=== PATIENT | male | born 1980 | race Caucasian/White ===

== ENCOUNTER 2018-07-24 12:11 | Inpatient (IN) | payer OTHER ==
--- NOTE | 2018-07-24 14:17 | C.PDOC ---
History Of Present Illness 38 yr old male w/ hx of intermittent etoh use (on weekends) no other Pmhx p/w R pointer finger laceration, chest pain and mild abdominal pain. 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 He denies any other laceration or any other trauma or fall. No headache, nausea or vomiting. He notes mild abdominal pain, epigastric, without nausea, vomiting, diarrhea or constipation. He notes the pain is a throbbing, but his main concern is chest pain, sharp stabbing, into his L side, without radiation. No shortness of breath or leg swelling. No SCHILLING. No fever chills or night sweats. HE denies any hx of etoh withdrawal. TETanus UTD, 3yr prior. He notes only drinking on the weekends and sometimes on the weekdays. He notes feeling tremulous at this time. Time Seen by Provider: 07/24/18 12:26 Chief Complaint (Nursing): Chest Pain Past Medical History Vital Signs: Last Vital Signs Temp 98.6 F 07/24/18 12:23 Pulse 122 H 07/24/18 12:23 Resp 18 07/24/18 12:23 BP 168/107 H 07/24/18 12:23 Pulse Ox 99 07/24/18 12:23 Family History: States: Unknown Family Hx - Social History Hx Alcohol Use: Yes Hx Substance Use: No - Immunization History Hx Tetanus Toxoid Vaccination: Yes Hx Influenza Vaccination: No Hx Pneumococcal Vaccination: No Review Of Systems Constitutional: Negative for: Fever, Chills, Sweats, Weakness, Malaise Eyes: Negative for: Pain, Vision Change ENT: Negative for: Ear Pain, Ear Discharge, Nose Pain, Nose Congestion, Mouth Pain Cardiovascular: Positive for: Chest Pain. Negative for: Palpitations, Orthopnea Respiratory: Negative for: Cough, Shortness of Breath, Hemoptysis, SOB with Excertion, Pleuritic Pain, Sputum Gastrointestinal: Positive for: Abdominal Pain. Negative for: Nausea, Vomiting, Diarrhea, Constipation, Melena, Hematochezia, Hematemesis Genitourinary: Negative for: Dysuria, Frequency Musculoskeletal: Negative for: Neck Pain, Shoulder Pain Skin: Negative for: Rash, Lesions Neurological: Negative for: Weakness, Confusion, Seizures, Headache Psych: Negative for: Anxiety, Depression Physical Exam - Physical Exam Appears: Non-toxic, No Acute Distress, Other (tremulous, mild) Skin: Normal Color, Warm Head: Atraumatic, Normacephalic Eye(s): bilateral: Normal Inspection, PERRL, EOMI Ear(s): Bilateral: Normal Nose: Normal Oral Mucosa: Moist Tongue: Normal Appearing Lips: Normal Appearing Teeth: Normal Dentition Gingiva: Normal Appearing Throat: Normal, No Erythema, No Exudate Neck: Normal, Normal ROM, Supple, Other (no meningeal signs) Lymphatic: Normal Exam Chest: Symmetrical Cardiovascular: Rhythm Regular Respiratory: Normal Breath Sounds, No Stridor, No Wheezing, No Plerual Rub Gastrointestinal/Abdominal: Normal Exam, Soft Back: Normal Inspection, No CVA Tenderness, No Vertebral Tenderness, No Decreased ROM Extremity: Tenderness, No Pedal Edema, No Calf Tenderness, Capillary Refill (normal), No Swelling, Other ( laceration to R index finger over dorsal / lateral surface: No tendon involvement or KNAVEL signs. No active ooze or bleed. good hemostasis. 1.5 cm. Good ROM, Good cap refill distal. No crepitus or erythema. ) Extremity: Bilateral: Hips Non-Tender, Normal Color And Temperature Neurological/Psych: Oriented x3, Normal Speech, Normal Cognition, No Cerebellar Signs, Normal Motor, Other (hands tremulous) Gait: Steady Extremity: Right: No Drift, Left: No Drift ED Course And Treatment - Laboratory Results Result Diagrams: 07/25/18 08:02 07/25/18 08:02 O2 Sat by Pulse Oximetry: 99 Medical Decision Making Medical Decision Makin38 year old male p/w finger laceration, chest pain, abdominal pain. Tremulous on exam but without tongue fasciulations. Pt denies any hx of etoh withdrawal or seizures. Clinically, appears in mild withdrawal but pt denies any withdrawal history. Chest pain non-cardiac descriptors w/ out sob or SCHILLING. No JVD or rub noted. Lungs CTA b/l. Pt notes abd pain but non-ttp on exam. No indication of trauma or fall or rash. Given finger lac >12 hrs since lac, and without tendon involvement, no signs of infection and good hemostasis no indication of closure at this time. EK, NSR, no stemi 1629 labs largely unremarkable ativan ordered for etoh withdrawal etoh withdrawal, to tele: accepted by Dr. Lee kamara no tendon involvement noted on exam. >12 hrs since lac keflex given pt in NAD, agreeable to plan Disposition - Disposition Disposition: HOSPITALIZED Disposition Time: 16:29 Condition: STABLE - Clinical Impression Clinical Impression: Finger laceration, Chest pain, Alcohol withdrawal
[2018-07-24] MEDS ORDERED: Sodium Chloride 0.9% 1,000 ML IV ONE (14:18)
[2018-07-24] MEDS ORDERED: Sodium Chloride 0.9% 1,000 ML ONE (14:42)
[2018-07-24 15:08] LABS: BASO % 0.3 % (0.0-2.0); EOS % 0.1 % (0.0-4.0); LYMPH # 1.7 K/uL (1.0-4.3); MEAN CELL VOLUME 93.3 fL (80.0-94.0); MEAN CORPUSCULAR HEMOGLOBIN 31.3 pg (27.0-31.0); MEAN CORPUSCULAR HGB CONC 33.6 g/dL (33.0-37.0); MONO # 0.6 K/uL (0.0-0.8); MONO % 6.6 % (0.0-10.0); NEUT # 6.9 K/uL (1.8-7.0); RBC 5.42 Mil/uL (4.40-5.90); RED CELL DISTRIBUTION WIDTH 13.2 % (11.5-14.5); WHITE BLOOD COUNT 9.2 K/uL (4.8-10.8)
[2018-07-24 15:15] LABS: VENOUS BLOOD GAS BASE EXCESS 6.4 mmol/L (0.0-2.0); VENOUS BLOOD GAS PCO2 45 mmHg (40-60); VENOUS BLOOD GAS PO2 37 mm/Hg (30-55); VENOUS BLOOD PH 7.45 (7.32-7.43)
[2018-07-24 15:39] LABS: ALB/GLOB RATIO 1.3 (1.0-2.1); ALBUMIN 5.3 g/dL (3.5-5.0); ALT/SGPT 166 U/L (21-72); AST/SGOT 133 U/L (17-59); BLOOD UREA NITROGEN 12 mg/dL (9-20); CALCIUM 10.7 mg/dl (8.6-10.4); GFR NON-AFRICAN AMERICAN > 60; LIPASE 56 U/L (23-300)
[2018-07-24 16:01] LABS: BARBITURATES, UR NEGATIVE (NEGATIVE); BENZODIAZEPINES, UR NEGATIVE (NEGATIVE); OPIATES, UR NEGATIVE (NEGATIVE); PHENCYCLIDINE, UR NEGATIVE (NEGATIVE)
--- NOTE | 2018-07-24 16:24 | RAD ---
Date of service: 07/24/2018 PROCEDURE: Right Index finger radiographs. HISTORY: lac COMPARISON: None. TECHNIQUE: AP radiograph of the right hand, as well as spot oblique and lateral images of index finger were obtained. FINDINGS: RIGHT INDEX FINGER: Normal right index finger, without fracture or focal lesion. Remainder of the right hand (as seen on the AP view) grossly intact. JOINTS: Normal. SOFT TISSUES: Is soft tissue defect compatible with laceration along the radial side of the 2nd digit proximal interphalangeal joint level. OTHER FINDINGS: Nonspecific minimal areas of cortical thickening along the ulnar side of the radial diaphysis and metaphysis. IMPRESSION: No osseous destruction or fracture. Soft tissue laceration noted above.
[2018-07-24 18:36] VITALS: RESP 20
[2018-07-24] MEDS ORDERED: Folic Acid 1 MG, Thiamine 100 MG, Multivitamin (MVI) 10 ML in Dextrose 5% In Water 1,00... IV SCH (21:00)
[2018-07-24] MEDS: Magnesium Sulfate 1 gm in D5W 1 GM/100 ML BAG IVPB SCH ×3 (21:18→23:42)
[2018-07-24] MEDS: Enoxaparin 40 mg Syringe SC SCH (21:20)
[2018-07-24] MEDS: Bacitracin Ointment 30 GM TUBE TOP SCH (22:00)
[2018-07-24 22:25] LABS: CK-MB 1.49 ng/mL (0.0-3.38)
[2018-07-25] MEDS: Magnesium Sulfate 1 gm in D5W 1 GM/100 ML BAG IVPB SCH (01:29)
[2018-07-25 04:14] LABS: SQUAMOUS EPITHIAL < 1 /hpf (0-5); URINE BILIRUBIN NEGATIVE (NEGATIVE); URINE BLOOD 1+ (NEGATIVE); URINE CLARITY Clear (Clear); URINE COLOR Yellow (YELLOW); URINE GLUCOSE (UA) NORMAL (Normal); URINE LEUKOCYTE ESTERASE NEG Leu/uL (Negative); URINE PROTEIN NEGATIVE (NEGATIVE); URINE UROBILINOGEN NORMAL mg/dL (0.2-1.0)
[2018-07-25 04:44] LABS: CK-MB 1.27 ng/mL (0.0-3.38)
[2018-07-25 08:10] LABS: BASO % 0.6 % (0.0-2.0); EOS % 0.7 % (0.0-4.0); HEMOGLOBIN 16.8 g/dL (12.0-18.0); LYMPH # 1.3 K/uL (1.0-4.3); LYMPH % 20.9 % (20.0-40.0); MEAN CELL VOLUME 94.1 fL (80.0-94.0); MEAN CORPUSCULAR HEMOGLOBIN 32.4 pg (27.0-31.0); MEAN CORPUSCULAR HGB CONC 34.4 g/dL (33.0-37.0); MEAN PLATELET VOLUME 7.5 fL (7.2-11.7); MONO # 0.9 K/uL (0.0-0.8); MONO % 14.5 % (0.0-10.0); NEUT # 3.8 K/uL (1.8-7.0); NEUT % 63.3 % (50.0-75.0); RBC 5.19 Mil/uL (4.40-5.90); RED CELL DISTRIBUTION WIDTH 12.7 % (11.5-14.5); WHITE BLOOD COUNT 6.1 K/uL (4.8-10.8)
[2018-07-25 08:28] LABS: ALB/GLOB RATIO 1.3 (1.0-2.1); ALBUMIN 4.8 g/dL (3.5-5.0); ALT/SGPT 149 U/L (21-72); AST/SGOT 130 U/L (17-59); BLOOD UREA NITROGEN 12 mg/dL (9-20); CALCIUM 9.2 mg/dl (8.6-10.4); GFR NON-AFRICAN AMERICAN > 60
[2018-07-25] MEDS: Enoxaparin 40 mg Syringe SC SCH (10:01)
[2018-07-25] MEDS: Bacitracin Ointment 30 GM TUBE TOP SCH ×2 (10:05→21:16)
--- NOTE | 2018-07-25 11:19 | PCM.PSYCH ---
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 A [employer] social studies department chair was used to obtain history. Consult was request for his alcohol abuse history. The patient reports drinking 3-4 glasses of whiskey every night since he moved to the [facility] from [place] 7 months ago. Patient denies any history of alcohol treatment in the past. Patient denies tobacco, marijuana, benzodiazepine, heroin, or cocaine use. He reports some wdw sxs when he doesn't drink. He admits to drinking "much more in [place]" He came 7 months ago. Family is still there. Patient reports right finger pain and chest pain at this time. Patient denies depressed mood, suicidal or homicidal ideations, auditory or visual hallucinations, or paranoia. Patient appears anxious but is not in acute distress. Psych Hx: denies Fam Psych: denies PMHx: denies Meds: denies Allergies: denies SurgHx: denies Current Medications: Active Medications Generic Name Dose Route Start Last Admin Trade Name Freq PRN Reason Stop Dose Admin Bacitracin 0 gm 07/24/18 20:30 07/25/18 10:05 Bacitracin TOP 1 applic BID ISAIAS Administration Chlordiazepoxide 50 mg 07/24/18 20:18 07/25/18 10:08 Librium PO 50 mg Q4 PRN Administration Agitation Enoxaparin Sodium 40 mg 07/24/18 20:20 07/25/18 10:01 Lovenox SC 40 mg DAILY ISAIAS Administration Folic Acid 1 mg/ Thiamine HCl 1,011.2 mls @ 80 mls/hr 07/24/18 21:00 07/24/18 21:18 100 mg/ Multivitamins/Vitamin IV 80 mls/hr C 10 ml/ Dextrose DAILY@2100 ISAIAS Administration Past Psychiatric History - Past Psychiatric History Previous Treatment History: None Pertinent Medical Hx (Current Medical&Sleep Prob, Allergies): Allergies Allergy/AdvReac Type Severity Reaction Status Date / Time No Known Allergies Allergy Unverified 07/24/18 12:51 No Known Home Med 07/24/18 Review of Systems - Neurological Neurological: Tremor - Psychiatric Psychiatric: Abnormal Sleep Pattern, Anxiety, Difficulty Concentrating. absent: Hallucinations, Homicidal Ideation, Paranoia, Suicidal Ideation Mental Status Examination - Personal Presentation Personal Presentation: Looks stated age - Affect Affect: Constricted - Motor Activity Motor Activity: Calm - Reliability in Providing Information Reliability in Providing Information: Good - Speech Speech: Organized - Cognitive Functions Orientation: Person, Place, Situation, Time Attention/Concentration: Attentive Estimate of Intelligence: Average Judgement: Intact, as evidence by: Insight regarding need for hospitalization Memory: Recent intact, as evidence by: Ability to recall events of the day, Remote intact, as evidenced by: Ability to recall historical events - Risk Risk: Withdrawal, Diminished functioning - Strength & Assets Inventory Strength & Assets Inventory: Cooperative - Limitations Limitations: Other DSM 5 DX - DSM 5 DSM 5 Diagnosis: Alcohol use disorder, severe Alcohol withdrawal - Recommended/Plan of Treatment Treatment Recommendations and Plan of Treatment: Taper with Ativan Start Folic Acid, Thiamine, Multivitamins Mirtazapine CBT Psychoeducation Supportive therapy, group therapy, individual therapy Spent 33 minutes
[2018-07-25] MEDS ORDERED: Multiple Vitamins Tab PO SCH (11:30)
--- NOTE | 2018-07-25 21:28 | CP.PCM.HP ---
Present on Admission - Present on Admission Any Indicators Present on Admission: No Past Patient History - Past Medical History & Family History Past Medical History?: Yes - Past Social History Smoking Status: Never Smoked - CARDIAC Hx Cardiac Disorders: No - PULMONARY Hx Respiratory Disorders: No - NEUROLOGICAL Hx Neurological Disorder: No - HEENT Hx HEENT Problems: No - RENAL Hx Chronic Kidney Disease: No - ENDOCRINE/METABOLIC Hx Endocrine Disorders: No - HEMATOLOGICAL/ONCOLOGICAL Hx Blood Disorders: No - INTEGUMENTARY Hx Dermatological Problems: No - MUSCULOSKELETAL/RHEUMATOLOGICAL Hx Musculoskeletal Disorders: No Hx Falls: No - GASTROINTESTINAL Hx Gastrointestinal Disorders: No - GENITOURINARY/GYNECOLOGICAL Hx Genitourinary Disorders: No - PSYCHIATRIC Hx Substance Use: No - SURGICAL HISTORY Hx Surgeries: No - ANESTHESIA Hx Anesthesia: No Hx Anesthesia Reactions: No Hx Malignant Hyperthermia: No Has any member of the family had a problem w/ anesthesia?: No Meds Allergies/Adverse Reactions: Allergies Allergy/AdvReac Type Severity Reaction Status Date / Time No Known Allergies Allergy Unverified 07/24/18 12:51 Results - Vital Signs Recent Vital Signs: Last Vital Signs Temp 97.3 F L 07/25/18 15:00 Pulse 87 07/25/18 15:00 Resp 20 07/25/18 15:00 BP 148/74 07/25/18 15:00 Pulse Ox 97 07/25/18 15:00 - Labs Result Diagrams: 07/25/18 08:02 07/25/18 08:02 Labs: Laboratory Results - last 24 hr 07/24/18 07/25/18 07/25/18 21:43 03:47 03:47 WBC RBC Hgb Hct MCV MCH MCHC RDW Plt Count MPV Neut % (Auto) Lymph % (Auto) [place] % (Auto) Eos % (Auto) Baso % (Auto) Neut # (Auto) Lymph # (Auto) [place] # (Auto) Eos # (Auto) Baso # (Auto) Sodium Potassium Chloride Carbon Dioxide Anion Gap BUN Creatinine Est GFR ( Amer) Est GFR (Non-Af Amer) Random Glucose Calcium Phosphorus Magnesium Total Bilirubin AST ALT Alkaline Phosphatase Total Creatine Kinase 216 H 190 H CK-MB (Mass) 1.49 1.27 Troponin I < 0.0120 < 0.0120 Total Protein Albumin Globulin Albumin/Globulin Ratio Urine Color Yellow Urine Clarity Clear Urine pH 6.0 Ur Specific [place] 1.015 Urine Protein Negative Urine Glucose (UA) Normal Urine Ketones Negative Urine Blood 1+ H Urine Nitrate Negative Urine Bilirubin Negative Urine Urobilinogen Normal Ur Leukocyte Esterase Neg Urine WBC (Auto) < 1 Urine RBC (Auto) 5 H Ur Squamous Epith Cells < 1 07/25/18 07/25/18 08:02 08:02 WBC 6.1 RBC 5.19 Hgb 16.8 Hct 48.8 MCV 94.1 H MCH 32.4 H MCHC 34.4 RDW 12.7 Plt Count 238 MPV 7.5 Neut % (Auto) 63.3 Lymph % (Auto) 20.9 [place] % (Auto) 14.5 H Eos % (Auto) 0.7 Baso % (Auto) 0.6 Neut # (Auto) 3.8 Lymph # (Auto) 1.3 [place] # (Auto) 0.9 H Eos # (Auto) 0.0 Baso # (Auto) 0.0 Sodium 131 L Potassium 4.2 Chloride 95 L Carbon Dioxide 26 Anion Gap 14 BUN 12 Creatinine 0.6 L Est GFR ( Amer) > 60 Est GFR (Non-Af Amer) > 60 Random Glucose 105 Calcium 9.2 Phosphorus 3.4 Magnesium 2.5 H Total Bilirubin 1.4 H AST 130 H ALT 149 H Alkaline Phosphatase 76 Total Creatine Kinase CK-MB (Mass) Troponin I Total Protein 8.4 H Albumin 4.8 Globulin 3.6 Albumin/Globulin Ratio 1.3 Urine Color Urine Clarity Urine pH Ur Specific [place] Urine Protein Urine Glucose (UA) Urine Ketones Urine Blood Urine Nitrate Urine Bilirubin Urine Urobilinogen Ur Leukocyte Esterase Urine WBC (Auto) Urine RBC (Auto) Ur Squamous Epith Cells
--- NOTE | 2018-07-26 07:15 | HP ---
CHIEF COMPLAINT: Laceration to right point finger, chest pain, and abdominal pain x2 days. HISTORY OF PRESENT ILLNESS: The patient is a 38-year-old male, who is alcoholic. 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 He denied any chest or head injury, back injury, and along with that, he has been having chest pain which is dull, non-radiating, not associated with diaphoresis or dizziness. No cough, no sore throat. He also has epigastric pain. No nausea, vomiting, or diarrhea. No constipation. He denies any history of cough, sore throat, runny nose. He denies any history of polyuria, polydipsia, or polyphagia. He denies any history of hematuria or pyuria. He denies any sneezing, itchy eyes, itchy nose. SOCIAL HISTORY: He smokes and he drinks. FAMILY HISTORY: Not obtainable. CURRENT MEDICATIONS: None. ALLERGIES: UNKNOWN. PHYSICAL EXAMINATION: GENERAL: A young male, in no acute distress. He is shaking. VITAL SIGNS: Blood pressure 139/99, pulse 51, respiratory rate 20, temperature 97.5. SKIN: No rashes. No bruises. No purpura. Skin is flushed. HEENT: Atraumatic, normocephalic. Negative pallor. Negative jaundice. Extraocular movements are intact. NECK: Supple. No JVD. No lymph nodes. No thyromegaly. CHEST: Chest wall, bilateral symmetrical expansion. No tenderness. No deformity. LUNGS: Clear. No rales. No rhonchi. CARDIOVASCULAR SYSTEM: PMI in the fifth intercostal space. S1 and S2, regular. No heave. No thrill. ABDOMEN: Soft, nontender. Bowel sounds are positive. RECTAL: No masses. No bleeding. EXTREMITIES: No clubbing, cyanosis, or edema. CENTRAL NERVOUS SYSTEM: Awake, alert, and oriented x3. He is shaking. He is tremulous. ASSESSMENT: 1. Alcohol withdrawal, delirium tremens. 2. Atypical chest pain. 3. Hypertension, which is induced by alcohol. 4. Chronic gastritis. PLAN: Admit. Detailed order are written. Seen and examined. Lee Munroe MD
[2018-07-26 08:01] LABS: BLOOD UREA NITROGEN 18 mg/dL (9-20); CALCIUM 9.4 mg/dl (8.6-10.4); GFR NON-AFRICAN AMERICAN > 60
[2018-07-26 09:02] VITALS: BP 143/63; TEMP 97.9; O2SAT 96
[2018-07-26] MEDS: Enoxaparin 40 mg Syringe SC SCH (09:27)
[2018-07-26] MEDS: Bacitracin Ointment 30 GM TUBE TOP SCH (09:28)
[2018-07-26] MEDS ORDERED: Multiple Vitamins Tab PO SCH (10:00)
--- NOTE | 2018-07-26 12:48 | CP.PCM.PN ---
Subjective - Date & Time of Evaluation Date of Evaluation: 07/26/18 Time of Evaluation: 13:00 - Subjective Subjective: Patient seen today, denies any complaints , no tremors noted vss and labs reviewed- stable Objective - Vital Signs/Intake and Output Vital Signs (last 24 hours): Temp Pulse Resp BP Pulse Ox 97.9 F 76 20 143/63 96 07/26/18 09:02 07/26/18 09:02 07/26/18 09:02 07/26/18 09:02 07/26/18 09:02 - Medications Medications: Current Medications Bacitracin (Bacitracin) 0 gm TOP BID [facility] Last Admin: 07/26/18 09:28 Dose: 1 applic Chlordiazepoxide (Librium) 50 mg PO Q4 PRN PRN Reason: Agitation Last Admin: 07/25/18 10:08 Dose: 50 mg Enoxaparin Sodium (Lovenox) 40 mg SC DAILY [facility] Last Admin: 07/26/18 09:27 Dose: 40 mg Folic Acid (Folic Acid) 1 mg PO DAILY [facility] Last Admin: 07/26/18 09:27 Dose: 1 mg Lorazepam (Ativan) 1 mg PO Q8H [facility]; Taper Stop: 07/29/18 11:59 Last Admin: 07/26/18 12:07 Dose: 1 mg Lorazepam (Ativan) 1 mg PO Q4H PRN PRN Reason: Symptoms of alcohol withdrawl Mirtazapine (Remeron) 15 mg PO HS [facility] Last Admin: 07/25/18 21:17 Dose: 15 mg Multivitamins (Hexavitamin) 1 tab PO DAILY [facility] Last Admin: 07/26/18 09:27 Dose: 1 tab Thiamine HCl (Vitamin B1 Tab) 100 mg PO DAILY [facility] Last Admin: 07/26/18 09:27 Dose: 100 mg - Labs Labs: 07/25/18 08:02 07/26/18 07:05 Assessment and Plan - Assessment and Plan (Free Text) Assessment: A/P 38 yr old female admitted with Finger laceration, Chest pain, and Alcohol withdrawal No tremors noted and stable D/w Dr. Munroe, cleared for discharge home today discharge plan discussed with patient who understands and agrees with plan
[2018-07-26 14:23] VITALS: PULSE 115
--- NOTE | 2018-07-26 21:28 | CARD ---
APPROVED REPORT Date of service: 07/24/2018 EKG Measurement Heart [id number] HI [id number] <Conclusion> Normal sinus rhythm Normal ECG
--- NOTE | 2018-07-26 21:44 | CARD ---
APPROVED REPORT Date of service: 07/24/2018 EKG Measurement Heart [id number] <Conclusion> Sinus tachycardia Voltage criteria for left ventricular hypertrophy Abnormal ECG
--- NOTE | 2018-07-27 08:25 | CP.PCM.DIS ---
Provider - Provider Date of Admission: 07/24/18 16:26 Attending physician: Lee Munroe MD Consults: 07/24/18 19:18 Inpatient [employer]ING [employer]PER[employer] Core Measures Referral Routine Comment: Physician Instructions: Reason For Exam: Dx chest pain 07/24/18 20:32 Psychiatry Consult Routine Comment: Consulting Provider: Jose Zuniga Consulting Physician: Jose Zuniga Reason for Consult: Dx Alcohol withdrawal,chest pain Time Spent in preparation of Discharge (in minutes): 30 Hospital Course - Lab Results Lab Results: Micro Results 07/24/18 14:30 Blood Blood Culture - Preliminary NO GROWTH AFTER 48 HOURS 07/24/18 15:00 Blood Blood Culture - Preliminary NO GROWTH AFTER 48 HOURS Most Recent Lab Values WBC 6.1 K/uL (4.8-10.8) 07/25/18 08:02 RBC 5.19 Mil/uL (4.40-5.90) 07/25/18 08:02 Hgb 16.8 g/dL (12.0-18.0) 07/25/18 08:02 Hct 48.8 % (35.0-51.0) 07/25/18 08:02 MCV 94.1 fL (80.0-94.0) H 07/25/18 08:02 MCH 32.4 pg (27.0-31.0) H 07/25/18 08:02 MCHC 34.4 g/dL (33.0-37.0) 07/25/18 08:02 RDW 12.7 % (11.5-14.5) 07/25/18 08:02 Plt Count 238 K/uL (130-400) 07/25/18 08:02 MPV 7.5 fL (7.2-11.7) 07/25/18 08:02 Neut % (Auto) 63.3 % (50.0-75.0) 07/25/18 08:02 Lymph % (Auto) 20.9 % (20.0-40.0) 07/25/18 08:02 [place] % (Auto) 14.5 % (0.0-10.0) H 07/25/18 08:02 Eos % (Auto) 0.7 % (0.0-4.0) 07/25/18 08:02 Baso % (Auto) 0.6 % (0.0-2.0) 07/25/18 08:02 Neut # (Auto) 3.8 K/uL (1.8-7.0) 07/25/18 08:02 Lymph # (Auto) 1.3 K/uL (1.0-4.3) 07/25/18 08:02 [place] # (Auto) 0.9 K/uL (0.0-0.8) H 07/25/18 08:02 Eos # (Auto) 0.0 K/uL (0.0-0.7) 07/25/18 08:02 Baso # (Auto) 0.0 K/uL (0.0-0.2) 07/25/18 08:02 pO2 37 mm/Hg (30-55) 07/24/18 15:12 VBG pH 7.45 (7.32-7.43) H 07/24/18 15:12 VBG pCO2 45 mmHg (40-60) 07/24/18 15:12 VBG HCO3 29.3 mmol/L 07/24/18 15:12 VBG Total CO2 32.7 mmol/L (22-28) H 07/24/18 15:12 VBG O2 Sat (Calc) 72.0 % (40-65) H 07/24/18 15:12 VBG Base Excess 6.4 mmol/L (0.0-2.0) H 07/24/18 15:12 VBG Potassium 4.3 mmol/L (3.6-5.2) 07/24/18 15:12 Sodium 135.0 mmol/l (132-148) 07/24/18 15:12 Chloride 97.0 mmol/L (98-107) L 07/24/18 15:12 Glucose 86 mg/dl (75-110) 07/24/18 15:12 Lactate 1.8 mmol/L (0.7-2.1) 07/24/18 15:12 FiO2 21.0 % 07/24/18 15:12 Sodium 132 mmol/L (132-148) 07/26/18 07:05 Potassium 4.3 mmol/L (3.6-5.2) 07/26/18 07:05 Chloride 98 mmol/L (98-107) 07/26/18 07:05 Carbon Dioxide 24 mmol/L (22-30) 07/26/18 07:05 Anion Gap 14 (10-20) 07/26/18 07:05 BUN 18 mg/dL (9-20) 07/26/18 07:05 Creatinine 0.8 mg/dL (0.8-1.5) 07/26/18 07:05 Est GFR ( Amer) > 60 07/26/18 07:05 Est GFR (Non-Af Amer) > 60 07/26/18 07:05 Random Glucose 108 mg/dL (75-110) 07/26/18 07:05 Calcium 9.4 mg/dl (8.6-10.4) 07/26/18 07:05 Phosphorus 3.4 mg/dL (2.5-4.5) 07/25/18 08:02 Magnesium 2.5 mg/dL (1.6-2.3) H 07/25/18 08:02 Total Bilirubin 1.4 mg/dL (0.2-1.3) H 07/25/18 08:02 AST 130 U/L (17-59) H 07/25/18 08:02 ALT 149 U/L (21-72) H 07/25/18 08:02 Alkaline Phosphatase 76 U/L (38-126) 07/25/18 08:02 Total Creatine Kinase 190 U/L (55-170) H 07/25/18 03:47 CK-MB (Mass) 1.27 ng/mL (0.0-3.38) 07/25/18 03:47 Troponin I < 0.0120 ng/mL (0.00-0.120) 07/25/18 03:47 Total Protein 8.4 g/dL (6.3-8.3) H 07/25/18 08:02 Albumin 4.8 g/dL (3.5-5.0) 07/25/18 08:02 Globulin 3.6 gm/dL (2.2-3.9) 07/25/18 08:02 Albumin/Globulin Ratio 1.3 (1.0-2.1) 07/25/18 08:02 Lipase 56 U/L (23-300) 07/24/18 15:01 Venous Blood Potassium 4.3 mmol/L (3.6-5.2) 07/24/18 15:12 Urine Color Yellow (YELLOW) 07/25/18 03:47 Urine Clarity Clear (Clear) 07/25/18 03:47 Urine pH 6.0 (5.0-8.0) 07/25/18 03:47 Ur Specific [place] 1.015 (1.003-1.030) 07/25/18 03:47 Urine Protein Negative mg/dL (NEGATIVE) 07/25/18 03:47 Urine Glucose (UA) Normal mg/dL (Normal) 07/25/18 03:47 Urine Ketones Negative mg/dL (NEGATIVE) 07/25/18 03:47 Urine Blood 1+ (NEGATIVE) H 07/25/18 03:47 Urine Nitrate Negative (NEGATIVE) 07/25/18 03:47 Urine Bilirubin Negative (NEGATIVE) 07/25/18 03:47 Urine Urobilinogen Normal mg/dL (0.2-1.0) 07/25/18 03:47 Ur Leukocyte Esterase Neg [place]mie/uL (Negative) 07/25/18 03:47 Urine WBC (Auto) < 1 /hpf (0-5) 07/25/18 03:47 Urine RBC (Auto) 5 /hpf (0-3) H 07/25/18 03:47 Ur Squamous Epith Cells < 1 /hpf (0-5) 07/25/18 03:47 Urine Opiates Screen Negative (NEGATIVE) 07/24/18 15:19 Urine Methadone Screen Negative (NEGATIVE) 07/24/18 15:19 Ur Barbiturates Screen Negative (NEGATIVE) 07/24/18 15:19 Ur Phencyclidine Scrn Negative (NEGATIVE) 07/24/18 15:19 Ur Amphetamines Screen Negative (NEGATIVE) 07/24/18 15:19 U Benzodiazepines Scrn Negative (NEGATIVE) 07/24/18 15:19 U Oth Cocaine Metabols Negative (NEGATIVE) 07/24/18 15:19 U Cannabinoids Screen Negative (NEGATIVE) 07/24/18 15:19 Alcohol, Quantitative 11 mg/dl (0-10) H 07/24/18 15:01 Discharge Plan - Discharge Medications Prescriptions: Folic Acid 1 mg PO DAILY #30 tab Multivitamins [Hexavitamin] 1 tab PO DAILY #30 tab Thiamine [Vitamin B1 Tab] 100 mg PO DAILY #30 tab - Follow Up Plan Condition: STABLE Disposition: HOME/ ROUTINE Instructions: Alcohol Use - When Is Drinking a Problem?, Chest Pain (DC), Alcohol Withdrawal, Alcohol Abuse and Alcoholism (DC), Folic Acid, Thiamine, Vitamins (Multiple/Oral) Additional Instructions: Please follow up with [facility] clinic / or [facility] in 1 week Please continue medication as per med. rec. Please join [facility] FOR alcohol abstinence Referrals: [facility] at [facility] [Outside]
--- NOTE | 2018-07-28 21:21 | DS ---
DISCHARGE DIAGNOSES: 1. Alcohol withdrawal, delirium tremens. 2. Dehydration. 3. Noncoronary chest pain. HISTORY OF PRESENT ILLNESS AND HOSPITAL COURSE: This is a 38-year-old male with history of alcoholism. He drinks large quantity, heavily. Came in because of chest pain. RI was ruled out because of negative cardiac enzymes. He has delirium tremens. He was given Librium. His condition started improving. He is feeling better. He is for discharge. CONDITION UPON DISCHARGE: Stable. PHYSICAL EXAMINATION: LUNGS: Clear. ABDOMEN: Soft and nontender. Bowel sounds are positive. He also had alcoholic liver disease, hypomagnesemia. The patient was treated, stabilized and is for discharge. Lee Munroe MD
== END 2018-07-26 14:55 | disposition home or self-care (01) | DRG 772 ==
LOC: C.ER 12:11 → C.9E 16:26 → C.6T 18:25
PROVIDERS: ADMIT Internal Medicine; ATTEND Internal Medicine
PROC: HZ2ZZZZ Detoxification Services for Substance Abuse Treatment (ICD-10-PCS; principal; 2018-07-24)
PROC: HZ42ZZZ Group Counseling for Substance Abuse Treatment, Cognitive-Behavioral (ICD-10-PCS; 2018-07-24)
PROC: HZ52ZZZ Individual Psychotherapy for Substance Abuse Treatment, Cognitive-Behavioral (ICD-10-PCS; 2018-07-24)
PROC: HZ59ZZZ Individual Psychotherapy for Substance Abuse Treatment, Supportive (ICD-10-PCS; 2018-07-24)
PROC: HZ56ZZZ Individual Psychotherapy for Substance Abuse Treatment, Psychoeducation (ICD-10-PCS; 2018-07-24)
PROC: HZ46ZZZ Group Counseling for Substance Abuse Treatment, Psychoeducation (ICD-10-PCS; 2018-07-24)
PROC: GZHZZZZ Group Psychotherapy (ICD-10-PCS; 2018-07-24)
PROC: GZ58ZZZ Individual Psychotherapy, Cognitive-Behavioral (ICD-10-PCS; 2018-07-24)
PROC: GZ56ZZZ Individual Psychotherapy, Supportive (ICD-10-PCS; 2018-07-24)
DX: F10.231 Alcohol dependence with withdrawal delirium (principal); K70.9 Alcoholic liver disease, unspecified; E83.42 Hypomagnesemia; R07.89 Other chest pain; I10 Essential (primary) hypertension; F17.210 Nicotine dependence, cigarettes, uncomplicated; Y90.0 Blood alcohol level of less than 20 mg/100 ml; K29.50 Unspecified chronic gastritis without bleeding; Z59.0 Homelessness; E86.0 Dehydration; X58.XXXA Exposure to other specified factors, initial encounter; S61.210A Laceration without foreign body of right index finger without damage to nail, initial encounter